=== PATIENT | male | born 1950 | race Caucasian/White ===

== ENCOUNTER 2016-05-07 03:18 | Emergency (ER) | payer MEDICARE, OTHER ==
[2016-05-07] VITALS (8 sets, daily range): BP systolic 127–163; BP diastolic 69–85; PULSE 39–72; RESP 16–20; TEMP 97.4; O2SAT 87–100
[~2016-05-07] VITALS: Ht 170.2 cm; Wt 86.7 kg
[~2016-05-07 03:18] MED LIST: CIPR500T4 PO; LOVA20TA OR; OXYC-360 PO; PROM25SU8 PO; TAMS0.4C67 PO
[2016-05-07] MEDS ORDERED: SODIUM CHLOR 0.9% 1000 ML INJ 1,000 ML IV ONE (03:28)
[2016-05-07] MEDS ORDERED: ONDANSETRON HCL 4 MG/2 ML VIAL IVP ONE (03:30)
[2016-05-07] MEDS ORDERED: SODIUM CHLORIDE 0.9% FLUSH 5 ML FLUSH IVF PRN ×2 (03:30→04:00)
[2016-05-07] MEDS ORDERED: TAMSULOSIN HCL 0.4 MG CAP PO ONE (03:30)
[2016-05-07] MEDS ORDERED: MORPHINE SULFATE 4 MG/ML INJ IV ONE (03:30)
[2016-05-07] MEDS ORDERED: LOVA20TA PO (03:39)
--- NOTE | 2016-05-07 03:40 | PD ---
HPI . Left flank pain Chief Complaint: Flank/Kidney Pain Time Seen by Provider: 03:28 Travel History International Travel<30 days: No Contact w/Intl Traveler<30days: No History of Present Illness HPI Patient presents with the acute onset of left flank pain. He was finally went to bed. He was awakened sharp, left-sided flank pain associated with nausea and vomiting, diaphoresis and urinary urgency. He has had this one time previously. He was able to pass his stone without difficulty at that time. PFSH Past Medical History High Cholesterol: Yes Diminished Hearing: No Social History Alcohol Use: Yes (OCCASIONAL) Tobacco Use: No Substance Use: No Allergies-Medications (Allergen,Severity, Reaction): Coded Allergies: No Known Allergies (Unverified , 05/07/16) Reported Meds & Prescriptions Reported Meds & Active Scripts Active Phenergan (Promethazine HCl) 25 Mg Tab 25 Mg PO Q6H PRN Flomax (Tamsulosin HCl) 0.4 Mg Cap 0.4 Mg PO HS Percocet (Oxycodone-Acetaminophen) 5-325 mg Tab 1-2 Tab PO Q6H PRN Reported Lovastatin 20 Mg Tab 20 Mg PO DAILY Review of Systems Except as stated in HPI: all other systems reviewed are Neg General / Constitutional: Positive: Other (diaphoresis) Gastrointestinal: Positive: Nausea, Vomiting Genitourinary: Positive: Urgency, Other (left flank pain), No: Frequency, Dysuria, Hematuria Physical Exam Narrative GENERAL: Patient is in obvious distress. SKIN: He is pale and diaphoretic. HEAD: Atraumatic. Normocephalic. EYES: Pupils equal and round. ENT: No nasal bleeding or discharge. Mucous membranes pink and moist. NECK: Trachea midline. Neck is supple. CARDIOVASCULAR: Regular rate and rhythm. RESPIRATORY: No accessory muscle use. GASTROINTESTINAL: Abdomen soft, non-tender, nondistended. MUSCULOSKELETAL: No obvious deformities. No edema. NEUROLOGICAL: Awake and alert. No obvious cranial nerve deficits. Motor grossly within normal limits. Normal speech. PSYCHIATRIC: Appropriate mood and affect; insight and judgment normal. Data Data Last Documented VS Vital Signs Date Time Temp Pulse Resp B/P Pulse Ox O2 Delivery O2 Flow Rate FiO2 05/07/16 06:49 78 16 131/83 98 05/07/16 06:05 Nasal Cannula 2 05/07/16 03:25 97.4 Orders Urinalysis - C+S If Indicated (05/07/16 03:28) Iv Access Insert/Monitor (05/07/16 03:28) Morphine Inj (Morphine Inj) (05/07/16 03:30) Ondansetron Inj (Zofran Inj) (05/07/16 03:30) Sodium Chloride 0.9% Flush (Ns Flush) (05/07/16 03:30) Sodium Chlor 0.9% 1000 Ml Inj (Ns 1000 M (05/07/16 03:28) Tamsulosin (Flomax) (05/07/16 03:30) Electrocardiogram (05/07/16 03:59) Ckmb (Isoenzyme) Profile (05/07/16 03:59) Complete Blood Count With Diff (05/07/16 03:59) Comprehensive Metabolic Panel (05/07/16 03:59) Magnesium (Mg) (05/07/16 03:59) Troponin I (05/07/16 03:59) Ecg Monitoring (05/07/16 03:59) Bilateral Bp Monitoring (05/07/16 03:59) Oximetry (05/07/16 03:59) Oxygen Administration (05/07/16 03:59) Sodium Chloride 0.9% Flush (Ns Flush) (05/07/16 04:00) Ct Abd/Pel W/O Iv Contrast (05/07/16 04:01) CKMB (05/07/16 04:00) CKMB% (05/07/16 04:00) Hydromorphone Pf Inj (Dilaudid Pf Inj) (05/07/16 04:45) Hydromorphone Pf Inj (Dilaudid Pf Inj) (05/07/16 05:30) Ketorolac Inj (Toradol Inj) (05/07/16 05:45) Prochlorperazine Inj (Compazine Inj) (05/07/16 05:45) Diphenhydramine Inj (Benadryl Inj) (05/07/16 05:45) Labs Laboratory Tests Test 05/07/16 05/07/16 03:35 04:00 Urine Collection Type CLEAN CATCH Urine Color YELLOW Urine Turbidity CLEAR Urine pH 5.5 Urine Specific [place] 1.023 Urine Protein NEG mg/dL Urine Glucose (UA) NEG mg/dL Urine Ketones NEG mg/dL Urine Occult Blood TRACE Urine Nitrite NEG Urine Bilirubin NEG Urine Leukocyte Esterase NEG Urine RBC 0-3 /hpf Urine Squamous Epithelial 0-5 /hpf Cells Urine Mucus OCC /lpf Microscopic Urinalysis Comment CULT NOT INDICATED White Blood Count 9.2 TH/MM3 Red Blood Count 5.16 MIL/MM3 Hemoglobin 15.2 GM/DL Hematocrit 46.9 % Mean Corpuscular Volume 90.9 FL Mean Corpuscular Hemoglobin 29.5 PG Mean Corpuscular Hemoglobin 32.5 % Concent Red Cell Distribution Width 12.5 % Platelet Count 369 TH/MM3 Mean Platelet Volume 8.3 FL Neutrophils (%) (Auto) 42.6 % Lymphocytes (%) (Auto) 42.9 % Monocytes (%) (Auto) 8.2 % Eosinophils (%) (Auto) 5.6 % Basophils (%) (Auto) 0.7 % Neutrophils # (Auto) 3.9 TH/MM3 Lymphocytes # (Auto) 3.9 TH/MM3 Monocytes # (Auto) 0.8 TH/MM3 Eosinophils # (Auto) 0.5 TH/MM3 Basophils # (Auto) 0.1 TH/MM3 CBC Comment DIFF FINAL Differential Comment Sodium Level 143 MEQ/L Potassium Level 3.9 MEQ/L Chloride Level 107 MEQ/L Carbon Dioxide Level 26.4 MEQ/L Anion Gap 10 MEQ/L Blood Urea Nitrogen 23 MG/DL Creatinine 1.50 MG/DL Estimat Glomerular Filtration 47 ML/MIN Rate Random Glucose 135 MG/DL Calcium Level 8.7 MG/DL Magnesium Level 2.4 MG/DL Total Bilirubin 0.3 MG/DL Aspartate Amino Transf 22 U/L (AST/SGOT) Alanine Aminotransferase 42 U/L (ALT/SGPT) Alkaline Phosphatase 52 U/L Total Creatine Kinase 104 U/L Creatine Kinase MB 1.3 NG/ML Troponin I LESS THAN 0.02 NG/ML Total Protein 6.8 GM/DL Albumin 3.5 GM/DL [facility] Medical Decision Making Medical Screen Exam Complete: Yes Emergency Medical Condition: Yes Interpretation(s) EKG shows a sinus rhythm with a rate of 38. He does not have any old EKGs for comparison. Differential Diagnosis Differential diagnosis of flank pain includes but is not limited to kidney stone , pyelonephritis, musculoskeletal pain, PE Narrative Course Patient presents with acute left flank pain associated with nausea, vomiting, diaphoresis and urgency. He probably has a kidney stone. I have ordered IV fluids and IV pain medication along with Flomax. Patient is noted to be bradycardic. He states that he is not on any medications that should make his heart rate slowed. He states that he has never been told that he has a slow heart rate before. His blood pressure is stable. 5:30 AM Patient is improved but states that the pain is "starting to come back." So far , he has had morphine, 10 mg IV, Dilaudid, 2 mg IV and Flomax. I have ordered an additional dose of Dilaudid. I will also Toradol. CT is still pending. UA shows trace blood. Other labs are unremarkable. Diagnosis Primary Impression: Renal colic on left side Patient Instructions: General Instructions, Kidney Stones (ED), Narcotic given in the ED Med/Other Pt SpecificInfo: Prescription(s) given Scripts Promethazine (Phenergan)25 Mg Tab25 Mg PO Q6H PRN (Nausea/Vomiting) #10 TAB Ref 0 Prov:Oneida Hedrick MD 05/07/16 Tamsulosin (Flomax)0.4 Mg Cap0.4 Mg PO HS #10 CAP Ref 0 Prov:Oneida Hedrick MD 05/07/16 Oxycodone-Acetaminophen (Percocet)5-325 mg Tab1-2 Tab PO Q6H PRN (PAIN) #15 TAB Ref 0 Prov:Oneida Hedrick MD 05/07/16 Disposition: 01 DISCHARGE HOME Condition: Stable Oneida Hedrick MD May 07, 2016 03:39
[2016-05-07 03:42] LABS: BLOOD, URINE TRACE (NEG); GLUCOSE,URINE NEG (NEG); KETONE, URINE NEG (NEG); NITRITE,URINE NEG (NEG); PH, URINE 5.5 (5.0-8.5)
[2016-05-07 03:53] LABS: METHOD OF COLLECTION CLEAN CATCH; URINE COLOR YELLOW (YELLW/STRAW)
[2016-05-07 03:54] LABS: SQUAMOUS EPITHELIAL CELL URINE 0-5 /hpf (0-5)
[2016-05-07 03:55] LABS: MUCUS URINE OCC /lpf (OCC); RBC, URINE 0-3 /hpf (0-3)
[2016-05-07 03:56] LABS: COMMENT (UR) CULT NOT INDICATED; CULTURE IF INDICATED CULT NOT INDICATED
[2016-05-07 04:19] LABS: AUTOMATED NEUTROPHIL # 3.9 TH/MM3 (1.8-7.7); BASOPHIL # 0.1 TH/MM3 (0-0.2); BASOPHIL % 0.7 % (0.0-2.0); EOSINOPHIL # 0.5 TH/MM3 (0-0.4); EOSINOPHIL % 5.6 % (0.0-4.0); HEMATOCRIT 46.9 % (39.0-51.0); HEMO FLAGS DIFF FINAL; LYMPH % 42.9 % (9.0-44.0); LYMPHOCYTE # 3.9 TH/MM3 (1.0-4.8); MEAN CELL VOLUME 90.9 FL (80.0-100.0); MEAN CORPUSCULAR HEMOGLOBIN 29.5 PG (27.0-34.0); MEAN CORPUSCULAR HGB CONC 32.5 % (32.0-36.0); MONO % 8.2 % (0.0-8.0); NEUT % 42.6 % (16.0-70.0); PLATELET COUNT 369 TH/MM3 (150-450); RED BLOOD COUNT 5.16 MIL/MM3 (4.50-5.90); RED CELL DISTRIBUTION WIDTH 12.5 % (11.6-17.2); WHITE BLOOD COUNT 9.2 TH/MM3 (4.0-11.0)
[2016-05-07 04:28] LABS: CHLORIDE 107 MEQ/L (98-107); POTASSIUM 3.9 MEQ/L (3.5-5.1); SODIUM (NA) 143 MEQ/L (136-145)
[2016-05-07 04:32] LABS: ANION GAP 10 MEQ/L (5-15); BICARBONATE 26.4 MEQ/L (21.0-32.0); BLOOD UREA NITROGEN 23 MG/DL (7-18); MAGNESIUM 2.4 MG/DL (1.5-2.5)
[2016-05-07 04:35] LABS: ALT (GPT) 42 U/L (12-78); AST (GOT) 22 U/L (15-37); GLOMERULAR FILTRATION RATE 47 ML/MIN (>89)
[2016-05-07 04:36] LABS: TOTAL BILIRUBIN ADULT 0.3 MG/DL (0.2-1.0)
[2016-05-07 04:38] LABS: ALKALINE PHOSPHATASE 52 U/L (45-117); CREATINE KINASE 104 U/L (39-308)
[2016-05-07] MEDS ORDERED: HYDROmorphone HCL PF 2 MG/ML VIAL IV PUSH ONE ×2 (04:45→05:30)
[2016-05-07 04:50] LABS: CKMB 1.3 NG/ML (0.5-3.6)
[2016-05-07] MEDS ORDERED: diphenhydrAMINE HCL 50 MG/ML VIAL IV PUSH ONE (05:45)
[2016-05-07] MEDS ORDERED: KETOROLAC TROMETHAMINE 30 MG/ML (IVP) VIAL IV PUSH ONE (05:45)
[2016-05-07] MEDS ORDERED: PROCHLORPERAZINE INJ 10 MG/2 ML VIAL IVS ONE (05:45)
--- NOTE | 2016-05-07 06:09 | RADHPO ---
EXAM DATE/TIME: 05/07/2016 04:34 [facility] COMPARISON: CT ABDOMEN & PELVIS W/O CONTRAST, January 12, 2012, 2:51. INDICATIONS : Left flank pain. Hematuria. ORAL CONTRAST: No oral contrast ingested. RADIATION DOSE: 21.99 CTDIvol (mGy) MEDICAL HISTORY : None SURGICAL HISTORY : None. ENCOUNTER: Initial ACUITY: 1 day PAIN SCALE: 10/10 LOCATION: Left flank TECHNIQUE: Volumetric scanning of the abdomen and pelvis was performed. Using automated exposure control and ad justment of the mA and/or kV according to patient size, radiation dose was kept as low as reasonably achievable to obtain optimal diagnostic quality images. FINDINGS: LOWER LUNGS: The visualized lower lungs are clear. LIVER: Homogeneous density without lesion. There is no dilation of the biliary tree. No calcified gallston es. SPLEEN: Normal size without lesion. PANCREAS: Within normal limits. KIDNEYS: The left kidney is mildly swollen with slight perinephric fatty tissue stranding. There is minimal hy dronephrosis and hydroureter down to the level of a miniscule stone at the ureterovesical junction. ADRENAL GLANDS: Within normal limits. VASCULAR: There is no aortic aneurysm. BOWEL/MESENTERY: Mild nonspecific induration in the root of the mesentery. Bowel structures are focally unremarkable ABDOMINAL WALL: Within normal limits. RETROPERITONEUM: There is no lymphadenopathy. BLADDER: 1 mm calcific focus at the left UVJ REPRODUCTIVE: Within normal limits. INGUINAL: There is no lymphadenopathy or hernia. MUSCULOSKELETAL: Within normal limits for patient age. CONCLUSION: 1 mm stone at the left UVJ. Mild nonspecific induration in the mesenteric root. Jefry Jeffery MD on May 07, 2016 at 6:04 Board Certified Radiologist. This report was verified electronically.
[2016-05-07] MEDS ORDERED: PERC5TAB12 PO (06:16)
[2016-05-07] MEDS ORDERED: TAMS5CAP PO (06:16)
[2016-05-07] MEDS ORDERED: PROM25TA5 PO (06:17)
--- NOTE | 2016-05-07 10:05 | EKG ---
Date Performed: 05/07/2016 Time Performed: 04:14:30 PTAGE: 65 years EKG: Marked sinus bradycardia Prolonged QT interval Abnormal ECG NO PREVIOUS TRACING DOCTOR: Sae Mendoza Interpretating Date/Time 05/07/2016 10:03:04
== END 2016-05-07 06:52 | disposition home or self-care (01) ==
LOC: PHED 03:18
DX: N23 Unspecified renal colic (principal); E78.00 Pure hypercholesterolemia, unspecified; R61 Generalized hyperhidrosis; R94.31 Abnormal electrocardiogram [ECG] [EKG]
CPT/HCPCS: 74176; 80053; 81001; 82550; 82552; 83735; 84484; 85025; 93005; 96361; 96374; 96375; 96376; 99284; J0780; J1170; J1200; J1885; J2270; J2405; J7030